=== PATIENT | female | born 1965 | race Caucasian/White ===

== ENCOUNTER 2016-08-17 12:04 | Day surgery (SDC) | payer OTHER ==
[2016-08-17] VITALS (11 sets, daily range): BP systolic 107–138; BP diastolic 59–79; PULSE 46–65; RESP 14–18; Ht 175.3 cm; Wt 61.0 kg
[~2016-08-17] VITALS: Ht 175.3 cm; Wt 61.0 kg
[~2016-08-17 12:04] MED LIST: ASPI-535 PO; BUPIVACAINE 0.25%/EPI (SDV) 30 ML INJ ONE; CEFAZOLIN 2 GM/50 ML (PMX) 50 ML IVPB ONE; GLYCOPYRROLATE 0.4 MG INJ ONE; LEVO75TA5 PO; NEOSTIGMINE 3 MG/3 ML SYRINGE ONE; SULI150T39 PO; TUMS PO
--- NOTE | 2016-08-17 12:53 | HPN ---
Date/Time of Note Date/Time of Note DATE: 08/17/16 TIME: 12:53 Interval H&P Admission Note Pt. seen H&P reviewed: No system changes CHANA DICK MD Aug 17, 2016 12:53
[2016-08-17] MEDS ORDERED: MIDAZOLAM 1 MG/ML 2 ML INJ ONE (13:34)
--- NOTE | 2016-08-17 13:43 | OPR ---
Date/Time of Note Date/Time of Note DATE: 08/17/16 TIME: 13:40 Operative Report Free Text/Dictation Plastic Surgery Operative Report Preoperative diagnosis: Increased susceptibility to breast cancer Postoperative diagnosis: Same Procedure: Bilateral nipple delay and subareolar biopsy Surgeon: Dusty Bateman.: None Anesthesia: Gen. EBL: Minimal IV fluids: Per anesthesia flow sheet Findings: n/a Complications: None Dispo: Home Indications for procedure: 51-year-old female presents today for a bilateral nipple delay procedure and subareolar biopsy. She prefers a superior periareolar incision and understands that this could potentially increase the risk of nipple or Stephie necrosis. She will undergo a bilateral mastectomy in 2 weeks. The risks, benefits, alternatives of performing this procedure were discussed with the patient including the risks of bleeding, infection, wound healing problems, partial or total nipple or areolar loss, change in nipple sensation, asymmetry, need for revision, and the patient states that she understands these risks and would like to proceed with the procedure. All questions were answered, no guarantees were given with regards to the outcome of this procedure. Description of procedure: Patient was brought to the operating room at [facility] where general anesthesia was induced. Next, the patient was prepped and draped in usual sterile fashion. First, a total of 5 mL of 0.25 % Marcaine with 1:200,000 epinephrine was injected into the planned incision site in each breast in superior periareolar incisions. Next, the peak plasma blade was used to incise through the right planned incision. A superior flap was then elevated for a short distance in the plane between the breast parenchyma and the subcutaneous fat. Next, the pedicle was created by undermining inferiorly below the nipple and areola and below into the lower pole of the breast in the same plane. Once adequate pedicle was created, a biopsy was taken from this subareolar tissue and was marked with a stitch anterior. Hemostasis was then achieved with bipolar cautery, the breast was irrigated with saline, and then the incision was closed with 3-0 Vicryl sutures and 4-0 Prolene sutures. Attention was then turned to the left breast where a similar procedure was carried out. the peak plasma blade was used to incise through the left planned incision. A superior flap was then elevated for a short distance in the plane between the breast parenchyma and the subcutaneous fat. Next, the pedicle was created by undermining inferiorly below the nipple and areola and below into the lower pole of the breast in the same plane. Once adequate pedicle was created, a biopsy was taken from this subareolar tissue and was marked with a stitch anterior. Hemostasis was then achieved with bipolar cautery, the breast was irrigated with saline, and then the incision was closed with 3-0 Vicryl sutures and 4-0 Prolene sutures. The patient tolerated procedure well, there were no complications, the nipples and areola were pink and viable at the completion of the procedure. CHANA DICK MD Aug 17, 2016 13:43
[2016-08-17] MEDS ORDERED: HYDROCODONE/APAP (5/325) TAB PO PRN (14:00)
[2016-08-17] MEDS ORDERED: ONDANSETRON 4 MG INJ IV PRN ×2 (14:00→14:30)
[2016-08-17] MEDS ORDERED: OXYCODONE/ACETAMINOPHEN (5/325) TAB PO PRN (14:00)
[2016-08-17] MEDS ORDERED: morphine 2 MG INJ IV PRN (14:00)
[2016-08-17] MEDS ORDERED: FENTAnyl 50 MCG/ML VIAL IV PRN (14:30)
[2016-08-17] MEDS ORDERED: HYDROmorphONE (0.2 MG/ML) 10ML SYG IV PRN ×2 (14:30)
[2016-08-17] MEDS ORDERED: DIPHENHYDRAMINE 50 MG INJ IV PRN (14:30)
[2016-08-17] MEDS ORDERED: MEPERIDINE 25 MG INJ IV PRN (14:30)
[2016-08-17] MEDS ORDERED: PROPOFOL 20 ML ONE (15:01)
[2016-08-17] MEDS ORDERED: ROCURONIUM 50 MG INJ ONE (15:01)
[2016-08-17] MEDS ORDERED: LIDOCAINE 2% (SDV) 5 ML INJ ONE (15:01)
[2016-08-17] MEDS ORDERED: CEFAZOLIN 1 GM INJ ONE (15:02)
[2016-08-17] MEDS ORDERED: ONDANSETRON 4 MG INJ ONE (15:02)
== END 2016-08-17 17:48 | disposition home or self-care (01) ==
LOC: SDS 12:04
PROVIDERS: ATTEND Surgery Plastic and Reconstructive Surgery
DX: N60.12 Diffuse cystic mastopathy of left breast (principal); N60.11 Diffuse cystic mastopathy of right breast; Z85.3 Personal history of malignant neoplasm of breast; E03.9 Hypothyroidism, unspecified
CPT/HCPCS: 19350; 88307; J0690; J1170; J2175; J2250; J2405; J2710; J3010; Z7512; Z7610

== ENCOUNTER 2016-08-31 07:48 | Inpatient (IN) | payer OTHER ==
[2016-08-30 11:38] VITALS: BMI 20.1
[2016-08-31] VITALS (42 sets, daily range): BP systolic 90–130; BP diastolic 60–89; PULSE 48–100; RESP 11–22; Ht 175.3 cm; Wt 60.0 kg
[~2016-08-31] VITALS: Ht 175.3 cm; Wt 60.0 kg
[~2016-08-31 07:48] MED LIST changes: -BUPIVACAINE 0.25%/EPI (SDV) 30 ML INJ ONE; +CEFAZOLIN 1 GM INJ ONE; -CEFAZOLIN 2 GM/50 ML (PMX) 50 ML IVPB ONE; +CEFAZOLIN 2 GM/50 ML (PMX) 50 ML IVPB SCH; -GLYCOPYRROLATE 0.4 MG INJ ONE; -NEOSTIGMINE 3 MG/3 ML SYRINGE ONE; +SOD CHLORIDE 0.9% 1,000 ML IV SCH; -SULI150T39 PO; -TUMS PO
--- NOTE | 2016-08-31 12:37 | HPN ---
Date/Time of Note Date/Time of Note DATE: 08/31/16 TIME: 12:36 Interval H&P Admission Note Pt. seen H&P reviewed: No system changes CHANA DICK MD Aug 31, 2016 12:36
[2016-08-31 12:47] LABS: BASOPHILS % 0.8 % (0.0-2.0); EOSINOPHILS % 0.8 % (0.0-7.0); HEMATOCRIT 37.5 % (37.0-47.0); HEMOGLOBIN 12.7 g/dl (12.0-16.0); LYMPHOCYTES % 20.5 % (15.0-51.0); MEAN CORPUSCULAR HGB CONC 33.8 g/dl (32.0-37.0); MEAN CORPUSCULAR VOLUME 97.7 fl (82.0-101.0); MONOCYTE # 0.4 10^3/ul (0.3-0.9); MONOCYTES % 8.3 % (0.0-11.0); NEUTROPHIL # 3.6 10^3/ul (1.6-7.5); NEUTROPHILS % 69.6 % (39.0-77.0); PLATELET COUNT 269 10^3/UL (140-440); RED BLOOD COUNT 3.84 10^6/ul (4.20-5.40); RED CELL DISTRIBUTION WIDTH 12.9 % (11.5-14.5); UNCORRECTED WBC 5.1 10^3/ul (4.8-10.8); WHITE BLOOD COUNT 5.1 10^3/ul (4.8-10.8)
[2016-08-31 12:57] LABS: INR 0.97; PROTIME 12.9 Sec (12.2-14.2)
[2016-08-31 13:00] LABS: POTASSIUM 4.3 mmol/L (3.5-5.1)
[2016-08-31] MEDS ORDERED: HYDROmorphONE (0.2 MG/ML) 10ML SYG IV PRN ×3 (13:00)
[2016-08-31] MEDS ORDERED: EPHEDrine SULFATE 50 MG/5 ML SYG IV PRN (13:00)
[2016-08-31] MEDS ORDERED: hydrALAzine 20 MG INJ IV PRN (13:00)
[2016-08-31] MEDS ORDERED: LABETALOL HCL 20MG INJ IV PRN (13:00)
[2016-08-31] MEDS ORDERED: BUPIVACAINE LIPOSOME/PF 266 MG/20 ML VIAL INFIL SCH (13:00)
[2016-08-31] MEDS ORDERED: FENTAnyl 50 MCG/ML VIAL IV PRN ×3 (13:00)
[2016-08-31] MEDS ORDERED: OXYCODONE/ACETAMINOPHEN (5/325) TAB PO PRN ×3 (13:00→18:00)
[2016-08-31] MEDS ORDERED: MEPERIDINE 25 MG INJ IV PRN (13:00)
[2016-08-31] MEDS ORDERED: ONDANSETRON 4 MG INJ IV PRN ×2 (13:00→18:00)
[2016-08-31 13:03] LABS: CALCIUM 8.9 mg/dl (8.4-10.2); CREATININE 0.67 mg/dl (0.44-1.00)
[2016-08-31 13:08] LABS: CONDITION 1
[2016-08-31] MEDS ORDERED: PROPOFOL 100 ML ONE (13:10)
[2016-08-31] MEDS ORDERED: ROCURONIUM 50 MG INJ ONE (13:10)
[2016-08-31] MEDS ORDERED: ACETAMINOPHEN 1000MG/100ML IV 100 ML ONE (13:10)
[2016-08-31 13:11] LABS: PARTIAL THROMBOPLASTIN TIME 35.1 Sec (25.0-35.0)
[2016-08-31] MEDS ORDERED: MIDAZOLAM 1 MG/ML 2 ML INJ ONE (13:14)
[2016-08-31] MEDS ORDERED: LIDOCAINE 2% (SDV) 5 ML INJ ONE (13:15)
[2016-08-31] MEDS ORDERED: EPINEPHrine 0.1 MG/ML SYG ONE (13:22)
[2016-08-31] MEDS ORDERED: GENTAMICIN 80 MG INJ ONE (13:22)
[2016-08-31] MEDS ORDERED: POLYMYXIN/BACITRACIN 1L IRRIG ONE (13:22)
[2016-08-31] MEDS ORDERED: BUPIVACAINE 0.5%/EPI (SDV) 30 ML INJ ONE (13:23)
[2016-08-31] MEDS ORDERED: DEXAMETHASONE 4 MG/ML 1 ML INJ ONE (14:34)
[2016-08-31] MEDS ORDERED: ONDANSETRON 4 MG INJ ONE (15:11)
[2016-08-31] MEDS ORDERED: MEPERIDINE 100 MG INJ ONE (16:33)
--- NOTE | 2016-08-31 17:05 | OPR ---
DATE OF OPERATION: 08/31/2016 PREOPERATIVE DIAGNOSIS: Bilateral breast implants, need for bilateral mastectomy and implant placem ent reconstruction. POSTOPERATIVE DIAGNOSIS: Bilateral breast implants, need for bilateral mastectomy and implant place ment reconstruction. PROCEDURE: Bilateral mastectomies and implant reconstruction. ANESTHESIA: General. ANESTHESIOLOGIST: Gigi Palmer MD SURGEON: Jake Toussaint MD PLASTIC SURGEON: Janusz Montano MD INDICATIONS FOR PROCEDURE: The patient is a 51-year-old female with strong family history of breast cancer. She had previously undergone bilateral implant reconstruction. She was evaluated and she was requesting placement of her implants and bilateral mastectomies. She consented and was schedule d for surgery. DESCRIPTION OF PROCEDURE: The patient was brought to the operating theater, placed under general an esthesia. The anterior thoracic region was prepped and draped in the usual sterile fashion. Attent ion was first directed to the left breast. Previous surgical incision from a procedure performed by Dr. Montano approximately 2 weeks earlier was reincised. Subcutaneous tissue was dissected with cau shandra. Skin flaps were then created first superiorly to the clavicle, then medially to the sternal b order, inferiorly to the inframammary fold and laterally until the latissimus dorsi muscle was ident ified throughout its course. Mastectomy then took place from medial to lateral using cautery, takin g great care not to injure the underlying implant. Specimen was transected, oriented, and sent for permanent pathologic analysis. Minimal bleeding was controlled with cautery. Dr. Toussaint then procee ded to the right side. Again, the previously made surgical incision of Dr. Montano was reincised. S ubcutaneous tissue was dissected with cautery. The skin edges were elevated and skin flaps were cre ated first superiorly to the clavicle, then medially to the sternal border, inferiorly to the infram ammary fold and laterally until the latissimus dorsi muscle was identified throughout its course. M astectomy then took place from medial to lateral using cautery. Specimen was transected, oriented, and sent for permanent pathologic analysis. Minimal bleeding was controlled with cautery. Both wou nds were packed with warm saline soaked dressing. At this point, Dr. Toussaint turned over control of t he operation to Dr. Montano. He will dictate his portion separately. Dictated By: JAKE ROMERO/TU Conf#: [id number] DID#: [id number]
[2016-08-31 17:17] LABS: BASOPHILS % 0.4 % (0.0-2.0); CONDITION 1; EOSINOPHILS % 0.3 % (0.0-7.0); HEMATOCRIT 31.7 % (37.0-47.0); HEMOGLOBIN 10.8 g/dl (12.0-16.0); LYMPHOCYTES # 0.9 10^3/ul (0.8-2.9); LYMPHOCYTES % 12.1 % (15.0-51.0); MEAN CORPUSCULAR HEMOGLOBIN 33.8 pg (29.0-33.0); MEAN CORPUSCULAR HGB CONC 34.1 g/dl (32.0-37.0); MEAN CORPUSCULAR VOLUME 98.9 fl (82.0-101.0); MEAN PLATELET VOLUME 8.1 fl (7.4-10.4); MONOCYTE # 0.3 10^3/ul (0.3-0.9); MONOCYTES % 4.4 % (0.0-11.0); NEUTROPHIL # 6.3 10^3/ul (1.6-7.5); NEUTROPHILS % 82.8 % (39.0-77.0); PLATELET COUNT 237 10^3/UL (140-440); RED BLOOD COUNT 3.21 10^6/ul (4.20-5.40); RED CELL DISTRIBUTION WIDTH 12.6 % (11.5-14.5); UNCORRECTED WBC 7.6 10^3/ul (4.8-10.8); WHITE BLOOD COUNT 7.6 10^3/ul (4.8-10.8)
[2016-08-31 17:27] LABS: INR 1.05; PROTIME 13.7 Sec (12.2-14.2); PT RATIO 1.1
[2016-08-31 17:28] LABS: PARTIAL THROMBOPLASTIN TIME 33.6 Sec (25.0-35.0)
[2016-08-31] MEDS: NITROGLYCERIN 2% 1 GM OINT PKT TD SCH (17:30)
[2016-08-31] MEDS ORDERED: DIPHENHYDRAMINE 50 MG INJ IV PRN (18:00)
[2016-08-31] MEDS: CEFAZOLIN 2 GM/50 ML (PMX) 50 ML IVPB SCH (18:00)
[2016-08-31] MEDS ORDERED: HYDROmorphONE 1 MG/ML SYG IV PRN (18:00)
[2016-08-31] MEDS ORDERED: ACETAMINOPHEN 325 MG TAB PO PRN (18:00)
--- NOTE | 2016-08-31 18:08 | OPR ---
Date/Time of Note Date/Time of Note DATE: 08/31/16 TIME: 17:59 Operative Report Free Text/Dictation Plastic Surgery Operative Report Preoperative diagnosis: increased risk of breast cancer Postoperative diagnosis: same Procedure:bilateral immediate implant reconstruction with alloderm and removal of implants Surgeon: otilia Bateman.:none Anesthesia:gen EBL:50cc IV fluids:per flow sheet Findings:n/a Complications:none Dispo:floor Indications for procedure: 51-year-old female presents today with the plan to undergo a bilateral mastectomy and immediate implant reconstruction with AlloDerm. The risks, benefits, alternatives of performing this procedure were discussed with the patient including the risks of bleeding, infection, wound healing problems, asymmetry, partial or total nipple and areolar loss, changes in nipple sensation, need for revision, skin flap necrosis, and the patient states that she understands these risks and would like to proceed with the procedure. All questions were answered, no guarantees were given with regards to the outcome of this procedure. Description of procedure: The patient was brought to the operating room at [facility] where general anesthesia was induced. Next, the patient was prepped and draped in usual sterile fashion. First, the mastectomy is performed by Dr. Desir, and this will be dictated separately. At the completion of this portion of the procedure, each breast was irrigated extensively with antibiotic irrigation, and meticulous hemostasis was achieved with the bipolar cautery. Next, the breasts were inspected. The breast implants that were existing seem to be subpectoral. Therefore, attention was turned to the right breast, and a muscle-splitting incision was made in the pectoralis muscle. The implant was removed. Next, superior, lateral, and medial capsulotomies were carried out. After an adequate pocket had been created, a 525 SCX sizer was opened and was inserted into the right breast after irrigating it with antibiotic irrigation. This gave the desired appearance of the breast, however this would create a gap in the pectoralis muscle. Therefore a piece of AlloDerm contour thick perforated was opened, soaked in normal saline , and was trimmed to fit into the space and the pectoralis muscle. One side of the AlloDerm was sutured to the pectoralis muscle with 2-0 Vicryl suture. Next, multiple rounds of hemostasis were carried out with the bipolar cautery and the right breast was irrigated with antibiotic irrigation. Gloves were changed, the sizer was removed, and then an Allergan 525cc SCX implant SN [id number] was opened , rinsed in antibiotic irrigation, and was inserted into the right breast with minimal touch technique. The remainder of the AlloDerm was tacked to the edge of the pectoralis muscle with 2-0 Vicryl suture. 2 #15 Lester drains were inserted through a stab incision in the right breast. 10 mL of Exparel were injected throughout the breast. Therefore, attention was turned to the left breast, and a muscle-splitting incision was made in the pectoralis muscle. The implant was removed. Next, superior, lateral, and medial capsulotomies were carried out. After an adequate pocket had been created, a 525 SCX sizer was opened and was inserted into the left breast after irrigating it with antibiotic irrigation. This gave the desired appearance of the breast, however this would create a gap in the pectoralis muscle. Therefore a piece of AlloDerm contour thick was trimmed from the original piece, both trimmed segments were 11x5cm. One side of the AlloDerm was sutured to the pectoralis muscle with 2-0 Vicryl suture. Next, multiple rounds of hemostasis were carried out with the bipolar cautery and the left breast was irrigated with antibiotic irrigation. Gloves were changed, the sizer was removed, and then an Allergan 525cc SCX implant SN [id number] was opened , rinsed in antibiotic irrigation, and was inserted into the left breast with minimal touch technique. The remainder of the AlloDerm was tacked to the edge of the pectoralis muscle with 2-0 Vicryl suture. 2 #15 Lester drains were inserted through a stab incision in the left breast. 10 mL of Exparel were injected throughout the breast. The patient was then sat up and the breasts were symmetric. Therefore, a final round of irrigation was carried out on both sides and additional hemostasis was carried out with the bipolar cautery. The lateral breasts were somewhat oozy, and therefore FloSeal was infiltrated into the bilateral lateral breasts. Finally, the deep tissue was closed with 3-0 Vicryl sutures and 3-0 Vicryl sutures and 4 Monocryl sutures were used on the skin. Nitroglycerin paste was placed on the nipple and areola. The drains were secured with 2-0 nylon. The patient tolerated procedure well, there were no complications, she will remain in the hospital overnight CHANA DICK MD Aug 31, 2016 18:08
[2016-08-31] MEDS: HYDROmorphONE 1 MG/ML SYG IV PRN (21:40)
[2016-08-31] MEDS: LACTATED RINGER'S 1,000 ML IV SCH (21:43)
[2016-08-31] MEDS: HYDROCODONE/APAP (10/325) TAB PO PRN (22:33)
[2016-09-01 00:37] LABS: ADD UMIC YES; URINE BILIRUBIN (Dip) NEGATIVE (NEGATIVE); URINE BLOOD (Dip) TRACE (NEGATIVE); URINE COLOR LT. YELLOW (YELLOW); URINE GLUCOSE (Dip) NEGATIVE (NEGATIVE); URINE KETONES (Dip) NEGATIVE (NEGATIVE); URINE LEUKOCYTE ESTERASE (Dip) NEGATIVE (NEGATIVE); URINE NITRITE (Dip) NEGATIVE (NEGATIVE); URINE TOTAL PROTEIN (Dip) NEGATIVE (NEGATIVE); URINE UROBILINOGEN (Dip) 0.2 E.U./dL (0.1-1.0)
[2016-09-01] MEDS: HYDROmorphONE 1 MG/ML SYG IV PRN ×3 (00:53→08:23)
[2016-09-01 01:36] LABS: BACTERIA,URINE FEW; SQUAMOUS EPITHELIAL CELL,UR OCCASIONAL
[2016-09-01] MEDS: CEFAZOLIN 2 GM/50 ML (PMX) 50 ML IVPB SCH ×2 (02:24→10:36)
[2016-09-01] MEDS: LACTATED RINGER'S 1,000 ML IV SCH ×3 (03:42→13:42)
[2016-09-01] MEDS: HYDROCODONE/APAP (10/325) TAB PO PRN ×3 (06:07→15:37)
--- NOTE | 2016-09-01 06:54 | PN ---
Date/Time of Note Date/Time of Note DATE: 09/01/16 TIME: 06:52 Assessment/Plan Lines/Catheters IV Catheter Type (from [facility]): Peripheral IV Latif in Place (from [facility]): No Assessment/Plan Assessment/Plan POD 1 s/p bilateral mastectomy, implant removal, implant reconstruction, alloderm doing well needs to ambulate more cont abx until home SCDs HL IVF discharge to home today patient has Rx and instructions and f/u appt Subjective 24 Hr Interval Summary no acute events overnight Exam/Review of Systems Vital Signs Vitals Vital Signs Date Time Temp Pulse Resp B/P Pulse Ox O2 Delivery O2 Flow Rate FiO2 08/31/16 23:35 98.6 66 18 108/62 99 08/31/16 22:45 Room Air 08/31/16 21:46 1.0 Intake and Output 08/31/16 08/31/16 09/01/16 15:00 23:00 07:00 Intake Total 1700 ml 1600 ml Output Total 404 ml 1165 ml Balance 1296 ml 435 ml Exam Free Text/Dictation General: NAD Breasts: some bruising, but flaps stable. NAC stable. Results Result Diagram: 08/31/16 1703 08/31/16 1226 CHANA DICK MD Sep 01, 2016 06:53
[2016-09-01 09:00] VITALS: BP 94/52; RESP 20
--- NOTE | 2016-09-01 16:27 | RADRPT ---
PROCEDURE: XR Chest. CLINICAL INDICATION: Hemoptysis. TECHNIQUE: PA and Lateral views of the chest were obtained. COMPARISON: None. FINDINGS: The cardiomediastinal silhouette is within normal limits of size . Bilateral lower lobe is partially obscured by overlying breast implants. The lateral views recommended to exclude the possibility of air space opacity. No definite focal consolidation or pleural effusion. No pneumothorax. The os seous structures and soft tissues are unremarkable. IMPRESSION: 1. Hazy opacity of the lower lobes likely secondary to overlap from the breast implants, however, un derlying airspace disease cannot be excluded. A lateral views recommended. RPTAT:AAJJ Physician Sisi Date Time Electronically viewed and signed by Physician Sisi on 09/01/2016 16:26 ENRIQUETA/
[2016-09-01] MEDS ORDERED: CEPASTAT LOZENGE MT PRN (19:30)
== END 2016-09-01 19:25 | disposition home or self-care (01) | DRG 584 ==
LOC: REC 11:56 → EDSTATUS 12:30 → MS1 20:15
PROVIDERS: ADMIT Surgery Plastic and Reconstructive Surgery; ATTEND Surgery Plastic and Reconstructive Surgery
PROC: 0HPU0JZ Removal of Synthetic Substitute from Left Breast, Open Approach (ICD-10-PCS; 2016-08-31)
PROC: 0HUV0KZ Supplement Bilateral Breast with Nonautologous Tissue Substitute, Open Approach (ICD-10-PCS; 2016-08-31)
PROC: 0HRV0JZ Replacement of Bilateral Breast with Synthetic Substitute, Open Approach (ICD-10-PCS; principal; 2016-08-31 12:30)
PROC: 0HPT0JZ Removal of Synthetic Substitute from Right Breast, Open Approach (ICD-10-PCS; 2016-08-31 12:30)
DX: Z40.01 Encounter for prophylactic removal of breast (principal); Q21.1 Atrial septal defect; E03.9 Hypothyroidism, unspecified; Z80.3 Family history of malignant neoplasm of breast
CPT/HCPCS: 71010; 80048; 81001; 81003; 84703; 85025; 85610; 85730; 87086; C1762; C1789; C9290; J0131; J0171; J0690; J1100; J1170; J1200; J1580; J2175; J2250; J2405; J3010; J7120

== ENCOUNTER → 2016-12-22 | Outpatient (CLI) | payer OTHER ==
[~2016-12-22] MED LIST changes: -CEFAZOLIN 1 GM INJ ONE; -CEFAZOLIN 2 GM/50 ML (PMX) 50 ML IVPB SCH; -SOD CHLORIDE 0.9% 1,000 ML IV SCH
--- NOTE | 2016-12-28 04:51 | HKNOTE ---
DATE OF SERVICE: 12/22/2016 REFERRING PHYSICIAN: [place] [id number] [facility], [address] [place] [address] MAIN COMPLAINT: Pain in the right hip. HISTORY OF MAIN COMPLAINT: The patient is a 51-year-old female who complains of pain in her right h ip which has been present for about a year. There is no history of injury. The patient first notic ed the pain while she was "just walking along." The pain continued for about a month. She did not limp. She was taking Naprosyn or sulindac which helps somewhat. Dr. Casanova gave her an injection o f cortisone. When that did not help, he referred her to Dr. Ángel Maradiaga. He gave her a cortison e injection into her right "hip" [buttock.] He also ordered physical therapy and tens which helped somewhat. Dr. Maradiaga also noted that she had pain in her right elbow, toes, and shoulders. Ther e was some thought that she may have rheumatoid arthritis, and blood tests were ordered, but she hyatt s not know the results of the tests. The patient then returned to Dr. Casanova, and he referred her to me for further evaluation. PRESENT COMPLAINTS: The patient's pain is localized to the right buttocks. There is radiation to t he lower back as well as down the back of the leg. Pain is aggravated by walking and stair climbing . She gets pain day and night. She is taking Naprosyn which has helped somewhat. She also tried " steroids." She gets numbness and tingling in her right leg in the same distribution as the pain, do wn her leg to her middle toe toes, "especially when the pain is bad." On a level surface, she can w alk a mile at a time without stopping. She does not use a walking aid. She does not limp. She fee ls fatigued all the time. PAST ORTHOPEDIC HISTORY: PREVIOUS ORTHOPEDIC OPERATIONS: None. PRIOR CORTISONE INTAKE: As above. ALCOHOL INTAKE: None. OTHER JOINT PROBLEMS: None. BLOOD TESTS FOR ARTHRITIS: She thinks Dr. Maradiaga may have ordered it, but she does not know the results. There has been no history of injury to her hips, knees, or back. 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 PAST MEDICAL HISTORY: 1. Ovarian cancer diagnosed in 2000 2. Hypothyroidism. 3. Basilar stenosis of the brain diagnosed in 2011. PAST SURGICAL HISTORY: 1. Radical hysterectomy in 1999. 2. Mastectomy 2016. ALLERGIES: IODINE USED FOR CONTRAST CAUSES HER TO BE UNABLE TO BREATHE. MEDICATIONS: 1. Aspirin 81 mg daily. 2. Premarin 0.625 mg daily for menopause. 3. Fosamax 70 mg daily for osteoporosis. 4. Levothyroxine 0.75 mg daily for thyroid. 5. Vitamin D3. 6. Vitamin C. 7. Vitamin D. 8. Vitamin E. 9. Vitamin A. 10. Biotin. 11. Folic acid. 12. Spectra. FAMILY HISTORY: Father age 91, alive and has diabetes and had a stroke. Mother age 78, alive and h as had heart problems. SYSTEMS REVIEW: Prone to severe headaches, persistent nausea, history of ovarian cancer, habitual c onstipation, hemorrhoids, double vision on occasion. PHYSICAL EXAMINATION: GENERAL: The patient is a reasonably fit looking 51-year-old female. She comes in with her mother. VITAL SIGNS: Height 5 feet 9 inches, weight 132 pounds, blood pressure 90/50, temperature 99.1. The patient walks without a walking aid. Gait is normal. BACK: Dynamic pain assessment reveals a pain free range of motion in flexion, extension, lateral be nding, and rotation. Inspection of the spine reveals no list. There is no lumbar paraspinal muscle s pasm. The pelvis is level. Facet stress test is negative bilaterally. Palpation of the spine demonst rates no tenderness of the spinous processes, facet joints, sacroiliac joint, sciatic notch, or post erior thigh. NEUROLOGIC: Motor examination reveals no muscle deficit in the lower extremities. Deep tendon refle xes in the lower extremities: Right knee jerk plus, left knee jerk plus, right ankle jerk plus, lef t ankle jerk plus. Straight leg raising is negative bilaterally at 80 degrees. Lasegue and TANIA heather ts are negative. HIPS: Both hips have a full range of motion without pain. There is no tenderness anywhere around e ither hip. RIGHT KNEE: The right knee shows normal alignment. Active and passive extension is 0 degrees. Activ e and passive flexion is 135 degrees. The medial and lateral collateral ligaments and cruciate ligam ents are intact. Raghav test is negative. There is no effusion, tenderness, scarring, crepitus, or cysts. The patella tracks normally. There is no tenderness on the articular surface of the patella o r in the patellar groove. The Q angle is normal. LEFT KNEE: The left knee shows normal alignment. Active and passive extension is 0 degrees. Active and passive flexion is 135 degrees. The medial and lateral collateral ligaments and cruciate ligamen ts are intact. Raghav test is negative. There is no effusion, tenderness, scarring, crepitus, or cy sts. The patella tracks normally. There is no tenderness on the articular surface of the patella or in the patellar groove. The Q angle is normal. IMAGING: Plain x-rays of her pelvis and hips obtained today at the [facility] we re reviewed. These show both hips to be normal radiologically. There is slight irregularity of the symphysis pubis. DEXA scan of hip and spine 10/14/2015 reported as showing osteopenia with moderate fracture risk. O pen MRI scan of the lumbar spine obtained 04/22/[address] James Motta as showing "mil d scoliosis convex to the right. L5-S1 disc desiccation. Otherwise essentially normal. [No acute abnormalities were identified.]" CAT scan examination of the pelvis without contrast, 07/06/2016, w as reported by Dr. Viraj Ivy as showing "sacroiliac joint symmetric and intact and minimal e johanny degenerative changes involving the hips with osteophytic ridging and subchondral cystic changes along the acetabular rims." Plain x-rays of the lumbar spine obtained on 10/26/[address] James Motta as showing "minimal scoliosis. Mild degenerative changes at L2-3." DISCUSSION: A 51-year-old female with no history who developed pain in her right buttock radiating down her right leg coupled with numbness and tingling in the right foot which clearly indicates a di agnosis of right-sided sciatica. She has had multiple joint pains which suggest that she should have a complete rheumatoid arthritis workup. She was advised that she is here today for my evaluation with ____ to evaluating her hips a nd knees. My opinion to her is that 1. Her symptoms in all probability come from the lumbar spine and not from his hips, sacroiliac joshua nts, or symphysis pubis. 2. The symptoms most certainly are not coming from her hips. DIAGNOSES: 1. Chronic low back pain with right-sided sciatica 2. Osteoporosis. 3. Postmenopausal status. 4. Hypothyroid. 5. Chronic migraines. 6. History of ovarian cancer. 7. History of mastectomy for breast cancer. 8. Basilar stenosis. 9. ALLERGIC TO IODINE CONTRAST MATERIAL. MANAGEMENT: 1. The patient is being scheduled to have CBC, sed rate, C-reactive protein, and rheumatoid factor. 2. She should have up-to-date MRI scans of the lumbar spine. 3. She should have a technetiumm bone scan to rule out metastases from one of her two cancers. 4. She should then be referred to a accounts receivable specialist for further evaluation. Dictated By: WOODROW HERNANDEZ/TU Conf#: [id number] DID#: [id number]
== END | disposition home or self-care (01) ==
LOC: HKI 13:43
DX: M25.551 Pain in right hip (principal); M54.5 Low back pain; E03.9 Hypothyroidism, unspecified
CPT/HCPCS: G0463

== ENCOUNTER 2018-08-29 08:10 | Day surgery (SDC) | payer OTHER ==
[2018-08-28 16:57] VITALS: BMI 20.5
[~2018-08-29] VITALS: Ht 175.3 cm; Wt 64.6 kg
[2018-08-29] VITALS (12 sets, daily range): BP systolic 103–125; BP diastolic 64–76; PULSE 52–71; RESP 14–24; Ht 175.3 cm; Wt 64.6 kg
[~2018-08-29 08:10] MED LIST changes: +BUPIVACAINE LIPOSOME/PF 266 MG/20 ML VIAL INFIL SCH; +SOD CHLORIDE 0.9% 1,000 ML IV SCH
[2018-08-29] MEDS ORDERED: LEVO75TA65 PO (08:41)
--- NOTE | 2018-08-29 09:10 | PREAC ---
Date/Time of Note Date/Time of Note DATE: 08/29/18 TIME: 09:09 Anesthesia Eval and Record Evaluation Time Pre-Procedure Interview DATE: 08/29/18 TIME: 09:09 Age 53 Sex female NPO: 8 hrs Preoperative diagnosis breast ca Planned procedure bilateral breast revision with abdominal fat grafting Past Medical History Past Medical History: Includes Endo: Hypothyroid Surgery & Anesthesia Issues No known issue Meds Anticoagulation: No Beta Gabriella within 24 hr: No Reason Beta Gabriella not given: Pt. not on B-Gabriella Reported Medications Levothyroxine Sodium* (Levoxyl*) 75 Mcg Tablet, 75 MCG PO BEFORE BREAKFAST, #30 TAB 08/29/18 Discontinued Reported Medications Levothyroxine Sodium* (Levothyroxine Sodium*) 75 Mcg Tablet, 75 MCG PO BEFORE BREAKFAST, #30 TAB 01/01/16 Aspirin Ec (Aspir 81) 81 Mg Tablet.dr, 81 MG PO DAILY, TAB 06/03/15 Current Medications Sodium Chloride 1,000 ml @ 0 mls/hr Q0M IV ; Start 08/29/18 at 06:30; Stop 08/29/18 at 20:00 Bupivacaine Liposome (Exparel 266 Mg/ 20 ml Vial) 266 mg INTRA-OP INFIL ; Start 08/29/18 at 07:30 Meds reviewed: Yes Allergies Coded Allergies: Iodinated Contrast- Oral and IV Dye (Verified Allergy, Unknown, SOB, 08/29/18) Allergies Reviewed: Yes Labs/Studies Labs Reviewed: Reviewed by anesthesiologist test: Negative Pre-procedure Exam Airway: Adequate mouth opening, Adequate thyromental dist Mallampati: Mallampati I Teeth: Normal Lung: Normal Heart: Normal ASA Physical Status ASA physical status: 2 Emergency: None Planned Anesthetic General/MAC: ETT, LMA Planned Pain Management Parenteral pain med Pre-operative Attestations Prior to commencing anesthesia and surgery, the patient was re-evaluated, there was verification of: *The patient's identity *The results of appropriate recent lab work and preoperative vital signs *The above evaluation not changing prior to induction *Anesthetic plan, risk benefits, alternative and complications discussed with patient/family; questions answered; patient/family understands, accepts and wishes to proceed. SHARON BONILLA Aug 29, 2018 09:10
--- NOTE | 2018-08-29 09:12 | HPN ---
Date/Time of Note Date/Time of Note DATE: 08/29/18 TIME: 09:12 Interval H&P Admission Note Pt. seen H&P reviewed: No system changes CHANA DICK MD Aug 29, 2018 09:12
[2018-08-29] MEDS ORDERED: EPINEPHrine 1 MG INJ ONE (09:21)
[2018-08-29] MEDS ORDERED: PROPOFOL 100 ML ONE (09:21)
[2018-08-29] MEDS ORDERED: ROCURONIUM 50 MG INJ ONE (09:23)
[2018-08-29] MEDS ORDERED: CEFAZOLIN 1 GM INJ ONE (09:23)
[2018-08-29] MEDS ORDERED: ONDANSETRON 4 MG INJ ONE (09:24)
[2018-08-29] MEDS ORDERED: DEXAMETHASONE 4 MG/ML 5 ML INJ ONE (09:24)
[2018-08-29] MEDS ORDERED: HYDROCODONE/APAP (5/325) TAB PO PRN (09:30)
[2018-08-29] MEDS ORDERED: morphine 2 MG INJ IV PRN (09:30)
[2018-08-29] MEDS ORDERED: ONDANSETRON 4 MG INJ IV PRN ×2 (09:30→11:00)
[2018-08-29] MEDS ORDERED: LIDOCAINE 2% (SDV) 5 ML INJ ONE (10:16)
[2018-08-29] MEDS ORDERED: GLYCOPYRROLATE 0.4 MG INJ ONE (10:23)
[2018-08-29] MEDS ORDERED: NEOSTIGMINE 3 MG/3 ML SYRINGE ONE (10:23)
--- NOTE | 2018-08-29 10:37 | NUR ---
ADMIT RR RECEIVED PT FROM OR S/P BILATERAL BREAST REVISION WITH FAT GRAFT. DRESSING ARE PRESENT ON BILATERAL THIGH AND ABDOMEN AND BREAST AREA DRY CLEAN AND INTACT. IV IS ON RIGHT HAND INTACT. PT DENIES PAIN.
--- NOTE | 2018-08-29 10:42 | PAC ---
Date/Time of Note Date/Time of Note DATE: 08/29/18 TIME: 10:42 Post-Anesthesia Notes Post-Anesthesia Note Last documented vital signs Vital Signs Date Temp Pulse Resp B/P (MAP) Pulse Ox O2 O2 Flow FiO2 Time Delivery Rate 08/29/18 97.7 71 16 111/64 98 Room Air 1042 (80) Activity: WNL Respiratory function: WNL Cardiovascular function: WNL Mental status: Baseline Pain reasonably controlled: Yes Hydration appropriate: Yes Nausea/Vomiting absent: Yes SHARON BONILLA Aug 29, 2018 10:42
--- NOTE | 2018-08-29 10:57 | OPR ---
Date/Time of Note Date/Time of Note DATE: 08/29/18 TIME: 10:46 Operative Report Free Text/Dictation Preoperative diagnosis: History of breast cancer Postoperative diagnosis: Same Procedure: Bilateral breast revision with fat grafting Surgeon: Dusty Bateman.: MARIE solo Anesthesia: gen EBL: min IV fluids: per flow sheet Findings: n/a Complications: none Dispo: home Indications for procedure: Patient presents with a history of mastectomy, implant reconstruction, and radiation. She has upper pole rippling. The risks, benefits, alternatives of performing this procedure were discussed with the patient including risks of bleeding, infection, wound healing problems, asymmetry, incomplete correction, overcorrection, need for revision, donor site contour abnormality, partial or total graft loss, need revision, and the patient states that they understand these risks and would like to proceed with the procedure. All questions were answered, no guarantees were given with regards to the outcome of this procedure. Description of procedure: The patient was brought to the operating room at [facility] where general anesthesia was induced and the patient was prepped and draped in usual sterile fashion. First, a total of 200 cc of a solution containing 1 L of saline with 1 amp of epinephrine and 20 cc of Exparel were infiltrated into the right and left lateral leg through stab incisions lower abdomen through stab incisions in the umbilicus and the previous lower abdominal scar. Next, after allowing adequate time for this medication to take effect, the [employer] harvesting cannula was used to lipoaspirate the bilateral lateral thighs. 40cc were taken from each site taking care to not cause a contour deformity. next, 20cc were harevested each from the right and left upper abdomen. Equal amounts were taken from each side. The fat was allowed to decant and was then reloaded back into the 20 cc syringes. The fat was then injected into the right and left breast through stab incisions in the previous mastectomy scars. 40 cc were injected into the left breast and 40 cc were injected into the right breast. Small aliquots were injected with each pass and multiple different vectors were used. fat was primariliy injected into the upper poles and areas of rippling. The breasts were inspected and appeared symmetric and the desired result had been achieved. Therefore the incisions were closed with 4-0 chromic suture. The patient tolerated the procedure well, there were no complications, follow-up information and wound care instructions were given Preoperative Diagnosis history of breast CA Postoperative Diagnosis same Operation/Procedure Performed bilateral revision of reconstructed breasts with fat grafting Surgeon see signature line [employer] MARIE solo Anesthesia Type: general Estimated Blood Loss: minimal Transfusion none Specimen none Grafts/Implants none Complications none Pt Condition Post Procedure: stable Procedure Description see dictation CHANA DICK MD Aug 29, 2018 10:56
[2018-08-29] MEDS ORDERED: FENTAnyl 50 MCG/ML VIAL IV PRN ×3 (11:00)
[2018-08-29] MEDS ORDERED: DIPHENHYDRAMINE 50 MG INJ IV PRN (11:00)
[2018-08-29] MEDS ORDERED: LABETALOL HCL 20MG INJ IV PRN (11:00)
[2018-08-29] MEDS ORDERED: KETOROLAC 30 MG INJ IV PRN (11:00)
[2018-08-29] MEDS ORDERED: OXYCODONE/ACETAMINOPHEN (5/325) TAB PO PRN ×2 (11:00)
[2018-08-29] MEDS ORDERED: HYDROmorphONE 1 MG/5 ML IV SYRINGE IV PRN ×2 (11:00)
[2018-08-29] MEDS ORDERED: ALBUTEROL 0.083% (NEB) 2.5 MG/3 ML AMP HHN PRN (11:00)
[2018-08-29] MEDS ORDERED: hydrALAzine 20 MG INJ IV PRN (11:00)
[2018-08-29] MEDS ORDERED: MIDAZOLAM 1 MG/ML 2 ML INJ IV PRN (11:00)
[2018-08-29] MEDS ORDERED: METOCLOPRAMIDE 10 MG INJ IV PRN (11:00)
[2018-08-29] MEDS ORDERED: EPHEDrine SULFATE 50 MG/5 ML SYG IV PRN (11:00)
[2018-08-29] MEDS ORDERED: MEPERIDINE 25 MG INJ IV PRN (11:00)
[2018-08-29] MEDS: HYDROmorphONE 1 MG/5 ML IV SYRINGE IV PRN ×2 (11:29→11:42)
--- NOTE | 2018-08-29 13:47 | NUR ---
PT TRANSFER FORM PACU AT 1200. PT C/O 03/09 INC PAIN. 2 PERCOCET GIVEN WITH RELIEF. PAIN DECREASED TO 10/07. SON AT [facility]. D/C TEACHING DONE AND INSTRUCTIONS GIVEN. PT D/C'D AT 1337.IV HL D/C'D
== END 2018-08-29 13:37 | disposition home or self-care (01) ==
LOC: SDS 08:10
PROVIDERS: ATTEND Surgery Plastic and Reconstructive Surgery
DX: N65.1 Disproportion of reconstructed breast (principal); Z85.3 Personal history of malignant neoplasm of breast
CPT/HCPCS: 19380; 84703; C9290; J0171; J0690; J1100; J1170; J2175; J2405; J3010; Z7512; Z7610; J2710